=== PATIENT | female | born 1965 ===

== ENCOUNTER 2024-09-28 06:04 | Day surgery (SDC) | payer BC, SELFPAY ==
[2024-09-27 08:59] LABS: Hematocrit 40.8 % (37.0-47.0); Hemoglobin 13.4 g/dL (12.0-16.0); Mean Corp Hgb Conc. 32.8 g/dL (33.0-37.0); Mean Corpuscular Volume 89.9 fL (81.0-99.0); Platelet Count 275 10^3/uL (130-400); Red Cell Dist. Width 13.7 % (11.5-14.5)
[2024-09-27 10:05] LABS: ALT (SGPT) 34 U/L (0-35); AST (SGOT) 24 U/L (14-36); Albumin 4.1 g/dl (3.5-5.0); Alkaline Phosphatase 42 U/L (38-126); Blood Urea Nitrogen 15 mg/dl (7-17); Calcium 9.4 mg/dl (8.4-10.2); Carbon Dioxide 27 mmol/L (22-30); Chloride 111 mmol/L (98-107); Glucose 101 mg/dl (70-99); Potassium 5.7 mmol/L (3.5-5.1); Sodium 142 mmol/L (135-145); Total Protein 6.7 g/dl (6.3-8.2); eGFR > 60.00
--- NOTE | 2024-09-27 13:35 | PTCARENOTE ---
Addendum entered by Amina Torres RN 09/27/24 13:47:
Patient to have K+ rechecked at bedside prior to surgery per Dr. Ramirez.
Original Note:
K+ 5.7, Renetta at Dr. Mejia office made aware.
[2024-09-27 14:07] VITALS: BMI 32.3
[2024-09-28] VITALS (16 sets, daily range): BP systolic 107–154; BP diastolic 51–84; BMI 32.3
[2024-09-28 07:47] LABS: Glucose - Point of Care 103 mg/dl (70-99)
[2024-09-28] MEDS: CELEBREX 200 MG PO (07:47)
[2024-09-28] MEDS: LYRICA 150 MG PO (07:47)
[2024-09-28] MEDS: TYLENOL 1000 MG PO ×3 (07:47→20:31)
[2024-09-28] MEDS: NORMOSOL-R/PLASMALYTE-A 1000 IV ×2 (07:48→15:25)
[2024-09-28] MEDS: METHOCARBAMOL 1500 MG PO ×3 (07:48→22:03)
[2024-09-28] MEDS: VANCOCIN 200 IV ×2 (07:49→20:31)
[2024-09-28 08:11] LABS: Potassium 4.2 mmol/L (3.5-5.1)
[2024-09-28] MEDS: DILAUDID 0.5 MG IV (11:39)
[2024-09-28] MEDS: DILAUDID 0.25 MG IV (12:01)
--- NOTE | 2024-09-28 12:01 | W.DS.TRANS ---
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
-
Discharge Instructions:
Sleep Apnea Risk Low
Discharge Diagnosis/Procedures L3-4-5 saman-lami fusion Mejia 09/28/24
Diet As tolerated
Driving Restrictions No driving
Instructions:
Stand-Alone Forms: [facility] D/C Inst.
Changes to Home Medications: Yes
Discharge Medications:
DC Medications w/original date entered in [employer]
Vitamin D 1 tab PO WEEKLY 09/26/24
atorvastatin 10 mg tablet 10 mg PO HS 09/26/24
fexofenadine-pseudoephedrine ER 180 mg-240 mg tablet,ext.release 24 hr (Sonali-D 24 Hour) 1 tab PO DAILY 09/26/24
levothyroxine 150 mcg tablet 150 mcg PO DAILY 09/26/24
montelukast 10 mg tablet (Singulair) 10 mg PO HS 09/26/24
omeprazole 40 mg capsule,delayed release 40 mg PO DAILY 09/26/24
tirzepatide 7.5 mg/0.5 mL subcutaneous pen injector (Mounjaro) 7.5 mg SC QWEEK 09/26/24
Saccharomyces boulardii 250 mg capsule (Florastor) 250 mg PO BID #1 cap 09/28/24
acetaminophen 325 mg tablet (Tylenol) 1,300 mg (4 x 325 mg) PO TID #0 tabs 09/28/24
clindamycin HCl 300 mg capsule 300 mg PO QID Infection #20 caps 09/28/24
dexamethasone 4 mg tablet 4 mg PO BID inflammation #6 tabs 09/28/24
docusate sodium 100 mg capsule (Colace) 100 mg PO BID stool softner #1 cap 09/28/24
gabapentin 300 mg capsule 300 mg PO HS sleep/pain #10 caps 09/28/24
ondansetron 4 mg disintegrating tablet 4 mg PO Q6H PRN n/v #20 tabs 09/28/24
tizanidine 2 mg tablet 2 mg PO TID PRN spasms 09/28/24
tramadol 50 mg tablet 50 mg PO Q6H PRN 1 tab moderate pain, 2 if severe #30 tabs 09/28/24
Home Medication Changes
Saccharomyces boulardii 250 mg capsule (Florastor) 250 mg PO BID #1 cap 09/28/24
acetaminophen 325 mg tablet (Tylenol) 1,300 mg (4 x 325 mg) PO TID #0 tabs 09/28/24
clindamycin HCl 300 mg capsule 300 mg PO QID Infection #20 caps 09/28/24
dexamethasone 4 mg tablet 4 mg PO BID inflammation #6 tabs 09/28/24
docusate sodium 100 mg capsule (Colace) 100 mg PO BID stool softner #1 cap 09/28/24
gabapentin 300 mg capsule 300 mg PO HS sleep/pain #10 caps 09/28/24
ondansetron 4 mg disintegrating tablet 4 mg PO Q6H PRN n/v #20 tabs 09/28/24
tizanidine 2 mg tablet 2 mg PO TID PRN spasms 09/28/24
tramadol 50 mg tablet 50 mg PO Q6H PRN 1 tab moderate pain, 2 if severe #30 tabs 09/28/24
Pending Results: No
--- NOTE | 2024-09-28 12:02 | W.PN.ORTHO ---
Today's Communication / Plan
-
d/c am if stable
Assessment
.
Dressing:
Clean, dry and intact.
Assessment:
N/V secondary to Oxy-will use Ultram w/ multimodal pain approach
Plan
.
Surgery / Date: L3-4-[address] Mejia 09/28/24
Activity:
Out of bed.
PT/OT
Discharge Plan: Home
Vital Signs and Labs
.
Vital Signs and Labs:
Lab Results
09/27/24 07:48
09/28/24 07:46
Temp Pulse Resp BP Pulse Ox
97.5 F 86 16 140/60 97
09/28/24 11:15 09/28/24 12:00 09/28/24 12:00 09/28/24 11:45 09/28/24 12:00
--- NOTE | 2024-09-28 13:50 | PTCARENOTE ---
Pt received from the PACU via bed. Transport was w/o incident. Pt is drowsy, although easily arousable. VSS, Pt is afebrile. Pt denies nausea and report pain at 3/10: 'Mild'. Pt instructed on plan of care. Pt verbalized understanding of
instructions. Call thorne is within reach.
[2024-09-28] MEDS: ULTRAM 50 MG PO ×2 (15:29→22:22)
[2024-09-28] MEDS: METHOCARBAMOL PO (20:26)
[2024-09-28] MEDS: LYRICA 75 MG PO (20:30)
[2024-09-28] MEDS: SENOKOT 17.2 MG PO (20:30)
[2024-09-28] MEDS: COLACE 100 MG PO (20:31)
[2024-09-28] MEDS: SINGULAIR 10 MG PO (22:03)
[2024-09-28] MEDS: LIPITOR 10 MG PO (22:03)
[2024-09-29] MEDS: NORMOSOL-R/PLASMALYTE-A 1000 IV (01:55)
[2024-09-29] MEDS: TYLENOL 1000 MG PO ×2 (02:58→07:36)
[2024-09-29] MEDS: ULTRAM 50 MG PO ×2 (02:59→07:35)
[2024-09-29 03:05] VITALS: BP 124/68
[2024-09-29 06:23] LABS: Hematocrit 36.2 % (37.0-47.0); Hemoglobin 11.9 g/dL (12.0-16.0)
[2024-09-29 06:42] LABS: Blood Urea Nitrogen 11 mg/dl (7-17); Calcium 8.6 mg/dl (8.4-10.2); Carbon Dioxide 28 mmol/L (22-30); Chloride 109 mmol/L (98-107); Estimated Creatinine Clearance 105 ml/min; Glucose 117 mg/dl (70-99); Potassium 4.7 mmol/L (3.5-5.1); Sodium 141 mmol/L (135-145); eGFR > 60.00
[2024-09-29 07:22] VITALS: BP 138/77
[2024-09-29] MEDS: PROTONIX 40 MG PO (07:35)
[2024-09-29] MEDS: COLACE 100 MG PO (07:36)
[2024-09-29] MEDS: LYRICA 75 MG PO (07:36)
[2024-09-29] MEDS: SENOKOT 17.2 MG PO (07:36)
[2024-09-29] MEDS: METHOCARBAMOL 1500 MG PO (07:37)
--- NOTE | 2024-09-29 08:11 | CM ---
CM reviewed medical records. CM met with patient in room. Patient lives independently with . Patient does not have a history of VN, SNF or DME. Patient is active with her PCP. Patient has medication coverage. Patient has an outpatient PT
facility in [place] that she will contact once surgically cleared.
PLAN: Home, outpatient PT once surgically cleared.
--- NOTE | 2024-09-29 08:24 | W.DS.TRANS ---
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
-
Discharge Instructions:
Sleep Apnea Risk Low
Discharge Diagnosis/Procedures L3-4-5 saman-lami fusion Mejia 09/28/24
Diet As tolerated
Driving Restrictions No driving
Instructions:
Stand-Alone Forms: [facility] D/C Inst.
Changes to Home Medications: No
Discharge Medications:
DC Medications w/original date entered in [employer]
Vitamin D 1 tab PO WEEKLY 09/26/24
atorvastatin 10 mg tablet 10 mg PO HS 09/26/24
fexofenadine-pseudoephedrine ER 180 mg-240 mg tablet,ext.release 24 hr (Sonali-D 24 Hour) 1 tab PO DAILY 09/26/24
levothyroxine 150 mcg tablet 150 mcg PO DAILY 09/26/24
montelukast 10 mg tablet (Singulair) 10 mg PO HS 09/26/24
omeprazole 40 mg capsule,delayed release 40 mg PO DAILY 09/26/24
tirzepatide 7.5 mg/0.5 mL subcutaneous pen injector (Mounjaro) 7.5 mg SC QWEEK 09/26/24
Saccharomyces boulardii 250 mg capsule (Florastor) 250 mg PO BID #1 cap 09/28/24
acetaminophen 325 mg tablet (Tylenol) 1,300 mg (4 x 325 mg) PO TID #0 tabs 09/28/24
clindamycin HCl 300 mg capsule 300 mg PO QID Infection #20 caps 09/28/24
dexamethasone 4 mg tablet 4 mg PO BID inflammation #6 tabs 09/28/24
docusate sodium 100 mg capsule (Colace) 100 mg PO BID stool softner #1 cap 09/28/24
gabapentin 300 mg capsule 300 mg PO HS sleep/pain #10 caps 09/28/24
ondansetron 4 mg disintegrating tablet 4 mg PO Q6H PRN n/v #20 tabs 09/28/24
tizanidine 2 mg tablet 2 mg PO TID PRN spasms 09/28/24
tramadol 50 mg tablet 50 mg PO Q6H PRN 1 tab moderate pain, 2 if severe #30 tabs 09/28/24
Home Medication Changes
Pending Results: No
--- NOTE | 2024-09-29 08:25 | W.PN.SP ---
Today's Communication / Plan
-
s/p lami fusion
PT
D/c
Subjective / Objective
Subjective Data
PT doing well
LEg better
NO weakness
Objective Data
Vital Signs
Temp Pulse Resp BP Pulse Ox
98.9 F 92 17 138/77 98
09/29/24 07:22 09/29/24 07:22 09/29/24 07:22 09/29/24 07:22 09/29/24 07:22
Intake and Output
09/28/24 09/29/24 09/30/24
06:59 06:59 06:59
Intake Total 3420 / 3420
Balance 3420 / 3420
Intake:
Oral fluids 1920 / 1920
IV fluids (Total) 1500 / 1500
Normosol 300 / 300
Other:
Number of approximated MODERATE 1
amounts of urine
Number of approximated LARGE 2
amounts of urine
Lab Data
09/29/24 05:18
09/29/24 05:18
Physical Exam
-
Good strngth to LE
[2024-09-29 10:02] VITALS: BP 139/78; PULSE 97; O2SAT 97
--- NOTE | 2024-09-29 10:26 | W.PN.ORTHO ---
Today's Communication / Plan
-
d/c
Assessment
.
Distal Motor Intact: Yes
Dressing:
Clean, dry and intact.
Assessment:
N/V secondary to Oxy-will use Ultram w/ multimodal pain approach-N/V resolved-pain well controlled at 0
MRSA+ on nasal screen--IV Vanco michael-op w/ Mupirocin Rx OP bid x 21 days
Plan
.
Surgery / Date: L3-4-[address] Mejia 09/28/24
Activity:
Out of bed.
PT/OT
Discharge Plan: Home
Subjective
.
.:
Patient resting comfortably.
Vital Signs and Labs
.
Vital Signs and Labs:
Lab Results
09/29/24 05:18
09/29/24 05:18
Temp Pulse Resp BP Pulse Ox
98.9 F 92 17 138/77 98
09/29/24 07:22 09/29/24 07:22 09/29/24 07:22 09/29/24 07:22 09/29/24 07:22
Physical Exam
-
HEENT: No pallor, cyanosis, or jaundice. Throat clear.
NECK: Supple. No JVD.
RESPIRATORY: Lungs clear to auscultation.
CVS: S1, S2 normal. RRR.� No murmur, rub or gallop.
ABDOMEN: Soft, non-tender. No distension. BS+/normal.
EXTREMITIES: strength equal, no calf pain with palpation
PHYSICIST ACOUSTICS: AOx3. No focal deficits. fisher net grossly intact
[2024-09-29] MEDS: NORMOSOL-R/PLASMALYTE-A IV (10:54)
[2024-09-29 11:20] VITALS: BP 167/70
== END 2024-09-29 12:11 | disposition home or self-care (01) ==
LOC: SDS 06:04
PROVIDERS: Anesthesiology; Physician Assistant Medical; ATTENDING PHYSICIAN Orthopaedic Surgery Orthopaedic Surgery of the Spine
DX: M48.062 Spinal stenosis, lumbar region with neurogenic claudication (principal); M43.16 Spondylolisthesis, lumbar region
CPT/HCPCS: 22612; 22840; 20930; 36415; 72100; 76000; 80048; 80053; 82962; 84132; 85014; 85018; 85027; 87070; 87147; 93005; 97162; 97166; 97535; C1713; C1776